=== PATIENT | female | born 2000 | race Caucasian/White ===

== ENCOUNTER 2023-07-08 18:20 | Emergency (ER) | payer BC, SELFPAY ==
[2023-07-08 18:26] VITALS: BP 123/71; PULSE 109; RESP 14; TEMP 37.1; O2SAT 100
--- NOTE | 2023-07-08 19:00 | ED.URI ---
HPI - URI/Sore Throat General Chief Complaint: Upper Respiratory Infection Stated Complaint: Sore Throat/Runny Nose Time Seen by Provider: 07/08/23 18:55 Source: patient and RN notes reviewed Mode of arrival: ambulatory Limitations: no limitations History of Present Illness HPI Narrative: 22-year-old female presents with concern for rhinorrhea, sore throat for several weeks. She reports her ear started hurting today. Reports she has been taking Sudafed without relief. 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 She denies fever, aches, chills, sweats MD elicited complaint: sore throat and rhinorrhea Related Data Allergies Allergy/AdvReac Type Severity Reaction Status Date / Time dicyclomine AdvReac Nausea Verified 07/08/23 18:30 Review of Systems Review of Systems: CONSTITUTIONAL: Denies malaise, chills, sweats, or fever. EYES: Denies visual changes, redness, or discharge. ENT: Reports rhinorrhea, congestion, otalgia and sore throat. CARDIOVASCULAR: Denies chest pain, palpitations, or edema. RESPIRATORY: Denies cough. Denies dyspnea. GASTROINTESTINAL: Denies abdominal pain, nausea, vomiting, diarrhea SKIN: Denies rash or itching. MUSCULOSKELETAL: Denies myalgia. NEUROLOGIC: Denies headache. All systems reviewed & are unremarkable except as noted in HPI and below PMFSH Comments At time of signature, agree with nursing past medical, surgical, social and family history. There is no relevant family history pertinent to the presenting complaint Exam Narrative: GENERAL: Nontoxic-appearing and in no acute distress. HEAD: Normocephalic EYES: PERRLA, conjunctivae clear ENT: Nares clear, turbinates edematous and erythematous, clear discharge. Mucous membranes moist. TM pearly mckeon with dull light reflex bilaterally; no tragal tenderness. Oropharynx erythematous without lesions. Tonsils not enlarged and without exudate, no drooling, no hoarseness, no trismus, uvula midline. NECK: Supple. No lymphadenopathy CHEST: Clear to auscultation, breath sounds equal. No wheezing, rhonchi, rales, or stridor. No respiratory distress, speaks in full sentences. HEART: Regular rate and rhythm. No murmur heard. SKIN: Warm, dry, no rash. NEURO: Alert and oriented x3. PSYCH: Normal mood and affect Course Course Emergency Course: Patient is aware of diagnosis, understands and agrees to treatment plan. Anticipatory guidance given. Patient agrees to follow-up as directed and is aware of reasons to seek care at the emergency department. Portions of this record may have been created with voice recognition software Level of Care: Express Care Visit Vital Signs Vital signs: Vital Signs Temperature 98.7 F 07/08/23 18:26 Pulse Rate 109 H 07/08/23 18:26 Respiratory Rate 14 07/08/23 18:26 Blood Pressure 123/71 07/08/23 18:26 Pulse Oximetry 100 07/08/23 18:26 Oxygen Delivery Room Air 07/08/23 18:26 Temperature 98.7 F 07/08/23 18:26 Pulse Rate 109 H 07/08/23 18:26 Respiratory Rate 14 07/08/23 18:26 Blood Pressure 123/71 07/08/23 18:26 Pulse Oximetry 100 07/08/23 18:26 Oxygen Delivery Room Air 07/08/23 18:26 Reviewed. MDM - URI/Sore Throat MDM Narrative Medical decision making narrative: Differential diagnosis considered: Barrios virus, strep pharyngitis, allergic rhinitis, upper respiratory tract infection, sinusitis, rhinosinusitis, nasopharyngitis. viral pharyngitis, otitis media, otitis externa, pneumonia, bronchitis, viral cough syndrome, viral syndrome, and influenza. Exam findings show no acute concerns or changes; patient is non-toxic appearing and is in no distress. Patient is appropriate for outpatient treatment and follow-up. Lab Data Attestation: I reviewed the patient's lab results. Labs: Strep Screen Positive Group A Strep *(Reference Range: Negative)* Critical Care Time Critical Care Time Critical Care Time: No Discha
== END 2023-07-08 19:06 | disposition home or self-care (01) ==
PROVIDERS: Emergency Provider Nurse Practitioner
DX: J02.0 Streptococcal pharyngitis (principal)
CPT/HCPCS: 87880; 99213; G0463